=== PATIENT | male | born 2000 | race Caucasian/White ===

== ENCOUNTER 2020-01-24 00:37 | Emergency (ER) | payer BC ==
[~2020-01-24] VITALS: Ht 180.3 cm; Wt 90.9 kg
[2020-01-24 00:38] VITALS: TEMP 98.5
[2020-01-24 01:34] LABS: ALANINE AMINOTRANSFERASE 28 U/L (4-49); ALBUMIN 4.9 gm/dL (3.5-5.0); ALKALINE PHOSPHATASE 120 U/L (50-136); ANION GAP 17 mmol/L (7-16); AST,SGOT 37 U/L (15-37); BILIRUBIN,TOTAL 0.4 mg/dL (0.0-1.0); BLOOD UREA NITROGEN 12 mg/dL (9-20); CALCIUM 9.3 mg/dL (8.4-10.2); CARBON DIOXIDE 21 mmol/L (22-30); CHLORIDE 103 mmol/L (98-107); CREATININE, serum 0.73 (0.66-1.25); GLUCOSE 106 mg/dL (74-106); POTASSIUM 4.1 mmol/L (3.4-5.0); SODIUM 141 mmol/L (137-145); TOTAL PROTEIN 8.2 gm/dL (6.4-8.2)
[2020-01-24 01:36] LABS: BASO % 0.5 % (0.0-2.0); EOS # 0.1 (0.0-0.7); EOS % 1.1 % (0-4.0); GRAN # 4.8 (1.4-6.5); GRAN % 53.8 % (42.2-75.2); HEMATOCRIT 41.5 % (42.0-52.0); HEMOGLOBIN 14.2 g/dl (13.5-18.0); LYMPH # 3.1 (1.2-3.4); LYMPH % 35.2 % (20.0-51.0); MEAN CELL VOLUME 90 fl (80.0-100.0); MEAN CORPUSCULAR HEMOGLOBIN 31 pg (27.0-31.0); MEAN CORPUSCULAR HGB CONC 34 g/dl (33.0-37.0); MEAN PLATELET VOLUME 9.4 fl (7.4-10.4); MONO # 0.8 (0.1-0.6); MONO % 8.9 % (1.7-9.3); PLATELET COUNT 289 K/mm3 (130-400); REDCELL DISTRIBUTION WIDTH-CV 12.8 % (11.5-14.5)
[2020-01-24 01:45] LABS: ALCOHOL(ethanol),MEDICAL 351 mg/dL; TROPONIN-I < 0.012 ng/mL (0.000-0.035)
[2020-01-24 02:26] LABS: TRICYCLIC ANTIDEPRESS URINE NEGATIVE
[2020-01-24 03:45] VITALS: BP 132/65; PULSE 73
== END 2020-01-24 03:45 | disposition short-term general hospital (02) ==
LOC: COL.ER 00:37
PROVIDERS: Emergency Medicine
DX: S02.0XXA Fracture of vault of skull, initial encounter for closed fracture (principal); S06.6X9A Traumatic subarachnoid hemorrhage with loss of consciousness of unspecified duration, initial encounter; S06.5X1A Traumatic subdural hemorrhage with loss of consciousness of 30 minutes or less, initial encounter; R40.2410 Glasgow coma scale score 13-15, unspecified time; W01.10XA Fall on same level from slipping, tripping and stumbling with subsequent striking against unspecified object, initial encounter; Y92.838 Other recreation area as the place of occurrence of the external cause
CPT/HCPCS: J2405